=== PATIENT | female | born 1970 | race Caucasian/White ===

== ENCOUNTER 2021-08-14 08:04 | Emergency (ER) | payer OTHER, SELFPAY ==
[2021-08-14 08:29] VITALS: BP 90/60; PULSE 81; RESP 18; TEMP 36.6; O2SAT 95
--- NOTE | 2021-08-14 09:11 | ED.GENADULT ---
HPI - General Adult General Chief complaint: Back Pain/Injury Stated complaint: Back Pain Time Seen by Provider: 08/14/21 09:11 Source: patient and RN notes reviewed Mode of arrival: ambulatory Limitations: no limitations History of Present Illness HPI narrative: Patient is a 50-year-old female who presents with low back pain sometimes radiating to the left hip denies injury or trauma notes history of chronic low back pain does not have a primary care doctor has been taking [id number] medications with minimal improvement denies any bladder or bowel incontinence or retention or any loss of feeling or function in the extremities or any fever chills or night sweats on arrival she appears uncomfortable but not distressed she notes that she went to an urgent care a couple days ago. Related Data Allergies Allergy/AdvReac Type Severity Reaction Status Date / Time carisoprodol Allergy Unknown SEIZURES Verified 07/20/19 17:20 ketorolac [From Toradol] AdvReac Other Verified 08/14/21 08:33 Review of Systems Review of Systems: All systems reviewed & are unremarkable except as noted in HPI and below PMFSH Past Medical History Medical History (Updated 08/14/21 @ 10:05 by Tanner Shaikh PA-C) Chronic low back pain Social History Social History (Updated 08/14/21 @ 09:59 by Tanner Shaikh PA-C) Smoking status: Current every day smoker Exam Narrative: GENERAL: Well-appearing, well-nourished, and in no acute distress. HEAD: Normocephalic, atraumatic. EYES: PERRLA and EOMI. ENT: Nares clear, no rhinorrhea or epistaxis. Mucous membranes moist. CHEST: Clear to auscultation. No respiratory distress. No wheezes rales or rhonchi HEART: Regular rate and rhythm. No murmur heard. Normal peripheral pulses. ABDOMEN: Soft, nontender, nondistended EXTREMITIES: Normal range of motion. No edema. Tenderness of the mid lumbar spine no deformities noted SKIN: Warm, dry, no rash. NEURO: No focal deficits. Alert and oriented x3. Motor and sensory intact and symmetrical in the extremities. Normal speech and gait PSYCH: Normal mood and affect. Course Course Emergency Course: Patient was evaluated treatment plan was explained to the patient ABCs and vital signs intact and stable felt appropriate for outpatient reevaluation she walked out prior to receiving her discharge instructions and medications Vital Signs Vital signs: Vital Signs Temperature 97.8 F 08/14/21 08:29 Pulse Rate 81 08/14/21 08:29 Respiratory Rate 18 08/14/21 08:29 Blood Pressure 90/60 L 08/14/21 08:29 Pulse Oximetry 95 08/14/21 08:29 Temperature 97.8 F 08/14/21 08:29 Pulse Rate 81 08/14/21 08:29 Respiratory Rate 18 08/14/21 08:29 Blood Pressure 90/60 L 08/14/21 08:29 Pulse Oximetry 95 08/14/21 08:29 Medical Decision Making MDM Narrative Medical decision making narrative: Patients pain is positional in nature and localized to back without signs of cord compression or cauda equina based on neurological exam, skeletal exam and history. No fever or other significant factors to suggest osteomyelitis or spinal epidural abscess. No symptoms or signs to suggest pain is referred from abdominal or / cardiopulmonary sources. No pulsatile masses noted on exam. Patient ambulates with steady gait and is stable for outpatient management given case findings. Vital Signs Vital Signs: Vital Signs Temperature 97.8 F 08/14/21 08:29 Pulse Rate 81 08/14/21 08:29 Respiratory Rate 18 08/14/21 08:29 Blood Pressure 90/60 L 08/14/21 08:29 Pulse Oximetry 95 08/14/21 08:29 Temperature 97.8 F 08/14/21 08:29 Pulse Rate 81 08/14/21 08:29 Respiratory Rate 18 08/14/21 08:29 Blood Pressure 90/60 L 08/14/21 08:29 Pulse Oximetry 95 08/14/21 08:29 Discharge Plan Discharge Clinical Impression: Acute bilateral low back pain Patient Disposition: Elopement After Seen by [facility] Follow-up/Referrals: PHYSICIANISI
--- NOTE | 2021-08-14 09:56 | PC.NURSE ---
patient refusing all testing of urine and blood work, patient states I told you I dont have an infection, I am not giving you my urine. EDP aware at this time
--- NOTE | 2021-08-14 09:59 | PC.NURSE ---
Pt currently not in her room at this time. Refused to give urine sample.
== END 2021-08-14 10:14 | disposition left against medical advice (07) ==
PROVIDERS: Emergency Provider Emergency Medicine
DX: M54.5 Low back pain (principal); F17.200 Nicotine dependence, unspecified, uncomplicated
CPT/HCPCS: 99281